=== PATIENT | male | born 1970 | race Caucasian/White ===

== ENCOUNTER 2017-10-25 23:29 | Emergency (ER) | payer SELFPAY ==
[~2017-10-25] VITALS: Ht 167.6 cm; Wt 73.0 kg
[2017-10-26 01:50] VITALS: BP 125/92
== END 2017-10-26 02:30 | disposition left against medical advice (07) ==
LOC: ER 23:29
DX: S05.92XA Unspecified injury of left eye and orbit, initial encounter (principal); W10.9XXA Fall (on) (from) unspecified stairs and steps, initial encounter; Y93.89 Activity, other specified; Y92.89 Other specified places as the place of occurrence of the external cause; Y99.8 Other external cause status
CPT/HCPCS: 99283; A4217